=== PATIENT | female | born 1970 | race Caucasian/White ===

== ENCOUNTER 2025-01-17 11:47 | Emergency (ER) | payer OTHER, SELFPAY ==
[2025-01-17 11:53] VITALS: BP 148/107
[2025-01-17 12:13] LABS: % Basophils 0.5 % (0-2); % Immature Granulocytes 0.4 % (0-0.5); % Lymphocytes 27.1 % (20.5-51.1); % Monocytes 6.8 % (1.7-9.3); % Neutrophils 64.2 % (42.2-75.2); Absolute Basophils 0.1 10^3/uL (0-0.2); Absolute Eosinophils 0.1 10^3/uL (0-0.7); Absolute Lymphocytes 2.7 10^3/uL (1.2-3.4); Absolute Monocytes 0.7 10^3/uL (0.1-0.6); Absolute Neutrophils 6.4 10^3/uL (1.4-6.5); Hematocrit 41.2 % (37.0-47.0); Hemoglobin 14.7 g/dL (12.0-16.0); Mean Corp Hgb Conc. 35.7 g/dL (33.0-37.0); Mean Corpuscular Hgb 32.3 pg (27.0-31.0); Mean Corpuscular Volume 90.5 fL (81.0-99.0); Nucleated Red Blood Cells % 0 %; Platelet Count 301 10^3/uL (130-400); Red Blood Cell Count 4.55 10^6/uL (4.20-5.40); Red Cell Dist. Width 12.4 % (11.5-14.5); White Blood Cell Count 9.9 10^3/uL (4.8-10.8)
[2025-01-17 12:23] LABS: INR 1.01; PT 13.6 Sec (11.4-14.6)
[2025-01-17 12:25] LABS: ALT (SGPT) 16 U/L (0-35); AST (SGOT) 18 U/L (14-36); Albumin 4.5 g/dl (3.5-5.0); Alkaline Phosphatase 53 U/L (38-126); Blood Urea Nitrogen 12 mg/dl (7-17); Calcium 9.6 mg/dl (8.4-10.2); Carbon Dioxide 24 mmol/L (22-30); Chloride 111 mmol/L (98-107); Glucose 104 mg/dl (70-99); Potassium 4.4 mmol/L (3.5-5.1); Sodium 139 mmol/L (135-145); Total Bilirubin 0.5 mg/dl (0.2-1.3); Total Protein 7.8 g/dl (6.3-8.2); eGFR > 60.00
[2025-01-17 12:35] LABS: HCG, Serum Qualitative Screen Negative
[2025-01-17 12:37] LABS: Troponin I < 0.012 ng/ml
--- NOTE | 2025-01-17 13:11 | ED.GENMED ---
History of Present Illness
General
Chief Complaint: Vaginal Bleeding
Source: patient
Exam Limitations: none
Time Seen by Provider: 01/17/25 12:50
History of Present Illness
History of Present Illness:
54-year-old female otherwise quite healthy presents with heavier than usual and longer lasting than usual menstrual cycle over the past 2 weeks. She notes lightheadedness fatigue as well as the development of hives. 3 months ago, during her
menstrual cycle she developed hives that went away when her cycle ended. She denies significant abdominal pain. No chest pain or shortness of breath. She has been regular with her menstrual cycle up until this point.
Past History
Past History
ED Past Medical History: None
ED Past Surgical History: Other (Tubal ligation)
Social History
Living: with family
Phy Exam
Physical Exam
Physical Exam:
General: Well-appearing female no acute respiratory distress
l HEENT: Normocephalic atraumatic
Heart: Regular rate and rhythm
Lungs: Clear no wheeze
Extremities: No cyanosis or edema
Skin: Urticarial rash over both arms the trunk and the legs. No underlying fluctuance or induration
Course
Orders/Labs/Results
Orders:
Orders
01/17/25 11:56
Electrocardiogram (*1) Urgent
Reason for Study: Chest Pain
EKG- Treatment ONCE
01/17/25 11:57
Test Result ONCE
01/17/25 12:03
Type+Screen Urgent
Complete Blood Count/With Diff Urgent
Comprehensive Metabolic Panel Urgent
HCG, Serum Qualitative Screen Urgent
Comment: Notify provider if positive test present
Prothrombin Time Urgent
Troponin I Urgent
01/17/25 13:05
Dexamethasone Sod Phosphate [Decadron] 10 mg IV NOW STA
Famotidine [Pepcid] 20 mg IV NOW STA
US Pelvis W Transvag Combined Urgent
Comment:
Reason For Exam: heavy bleeding
01/17/25 13:08
0.9% Sodium Chloride 1000 ml [Nss] 1,000 ml IV BOLUS
Abnormal Lab Results
01/17/25
12:03
MCH 32.3 H pg
(27.0-31.0)
Absolute Monos (auto) 0.7 H 10^3/uL
(0.1-0.6)
Chloride 111 H mmol/L
(98-107)
Glucose 104 H mg/dl
(70-99)
01/17/25 12:03
01/17/25 12:03
Vital Signs
Initial and Last Documented VS:
Initial Vital Signs
Temp Pulse Resp BP Pulse Ox
98.5 F 85 16 148/107 99
01/17/25 11:53 01/17/25 11:53 01/17/25 11:53 01/17/25 11:53 01/17/25 11:53
Last Documented Vital Signs
Temp Pulse Resp BP Pulse Ox
98.5 F 85 16 134/63 96
01/17/25 11:53 01/17/25 11:53 01/17/25 11:53 01/17/25 14:00 01/17/25 14:30
MDM/Problems Addressed
Differential Diagnosis Includes:
Irregular vaginal bleeding. Consider fibroids anemia electrolyte abnormality. Also has urticarial rash.
Hard to connect the menstrual cycle and urticaria but consider allergic reaction or underlying autoimmune issues. Ultrasound pelvis pending. Check labs and EKG.
*Critical Care Note
Total Time (30-74mins, 75-104mins- exclusive of procedures): Not Applicable
Update Note
Update Note:
Ultrasound normal. Hives have improved after medications. Vital signs remained stable. Recommend she follow-up with gynecology for her prolonged menstrual cycle. She will continue Benadryl as needed for hives.
ED Attending Note
-
Portions of this chart may have been created with voice recognition software.� Occasional wrong word or��sound alike� substitutions may have occurred due to the inherent limitations of voice recognition software.
Discharge Plan
Departure
Patient Disposition: Home (Routine Discharge)
Date of Disposition: 01/17/25
Time of Disposition: 17:22
Patient with high blood pressure during this ER visit?: No
Discharge Problem:
Bleeding, uterine, dysfunctional, Hives
Instructions: Heavy Periods (DC)
Prescriptions:
No Action
No Current Medications
0
Referrals:
Bre Pritchard DO [Active] -
Diana Pickett MD [Family Provider] -
Activity Restrictions/Additional Instructions:
Continue with Benadryl at home for hives. Return here for worsening bleeding otherwise consider following up with gynecology
Interventions
Interventions:
*Risk Screen - Suicide Last Done: 01/17/25 11:53
*General Assessment Last Done: 01/17/25 12:34
*Neglect/Abuse Screening Last Done: 01/17/25 11:53
*ED- Fall Risk Assessment Last Done: 01/17/25 12:34
*ED COVID-19 Vaccine History Last Done: 01/17/25 12:34
ED-Female Genitourinary Assessment Last Done: 01/17/25 13:22
Discharge Date and Time
Print Language: BHUTANESE
[2025-01-17] MEDS: NSS 1000 IV (13:14)
[2025-01-17] MEDS: DECADRON 10 MG IV (13:15)
[2025-01-17] MEDS: PEPCID 20 MG IV (13:15)
[2025-01-17 13:21] VITALS: BP 131/107
[2025-01-17 14:00] VITALS: BP 134/63
== END 2025-01-17 17:43 | disposition home or self-care (01) ==
LOC: EMR 11:47
PROVIDERS: EMERGENCY PHYSICIAN Student in an Organized Health Care Education/Training Program; FAMILY PHYSICIAN Family Medicine
DX: L50.9 Urticaria, unspecified (principal); N93.9 Abnormal uterine and vaginal bleeding, unspecified
CPT/HCPCS: 99285; 96374; 96375; 96361; 76830; 76856; 80053; 84484; 84703; 85025; 85610; 86850; 86900; 86901; 93005